=== PATIENT | female | born 1940 | race Caucasian/White ===

== ENCOUNTER → 2017-12-03 | Outpatient (CLI) | payer MEDICARE | END | disposition home or self-care (01) | LOC: CFH 07:16 | PROVIDERS: ATTEND Internal Medicine | DX: Z12.31 Encounter for screening mammogram for malignant neoplasm of breast (principal) | CPT/HCPCS: 77067 ==

== ENCOUNTER 2018-05-09 18:39 | Inpatient (IN) | payer MEDICARE ==
[~2018-05-09] VITALS: Ht 162.6 cm; Wt 82.7 kg
--- NOTE | 2018-05-09 18:53 | NUR ---
PT [place] HAD A WITNESSED "90 SECOND SEIZURE". PER EMS, PT DID NOT FALL OUT OF THE CHAIR AND DID NOT HAVE ANY TRAUMA DURING SEIZURE BUT WAS INCONTINENT OF URINE. WHEN EMS ARRIVED ON SCENE PT WAS POSTICTAL. PT IS NOW A&OX4. PT IS A POOR HISTORIAN, DENIES HX OF SEIZURES. PT STATES HER BACK AND LEFT FOOT ARE SORE. PT DENIES ANY OTHER PAIN. PT PLACED ON CONT. SPO2, CARDIAC, AND BP MONITOR. SEIZURE PRECAUTIONS IN PLACE
--- NOTE | 2018-05-09 19:14 | NUR ---
EDMD AT BED SIDE. EDMD EXPLAINING PLAN OF CARE. PT AOX4. RESPS EVEN AND UNLABORED. NEURO INTACT. ALL MONITORS IN PLACE. CALL LIGHT WITHN REACH. WILL CONTINUE TO MONITOR.
[2018-05-09 19:53] LABS: BASOPHILS # (AUTO) 0.02 x10^3/uL (0-0.1); BASOPHILS % (AUTO) 0 % (0-1); EOSINOPHILS # (AUTO) 0.16 x10^3/uL (0-0.4); EOSINOPHILS % (AUTO) 2 % (1-7); LYMPHOCYTES # (AUTO) 1.85 x10^3/uL (1-3.4); LYMPHOCYTES % (AUTO) 18 % (22-44); MD NO; MEAN CORPUSCULAR HEMOGLOBIN 30.9 pg (27.0-34.8); MEAN CORPUSCULAR HGB CONC 33.9 g/dL (32.4-35.8); MEAN CORPUSCULAR VOLUME 91.2 fL (80-100); MONOCYTES % (AUTO) 4 % (2-9); NEUTROPHILS # (AUTO) 7.98 x10^3/uL (1.8-6.8); NEUTROPHILS % (AUTO) 77 % (42-75); PLATELET COUNT 347 x10^3/uL (130-400); RED BLOOD COUNT 4.68 x10^6/uL (3.82-5.3); RED CELL DISTRIBUTION WIDTH 13.7 % (9.6-15.2)
[2018-05-09 20:03] LABS: ALANINE AMINOTRANSFERASE 26 U/L (12-78); ALBUMIN 3.9 g/dL (3.4-5.0); ANION GAP 10 mmol/L (5-15); CALCIUM 8.3 mg/dL (8.5-10.1); CHLORIDE 104 mmol/L (98-107); CREATININE 1.02 mg/dL (0.55-1.02)
--- NOTE | 2018-05-09 20:03 | NUR ---
PT IN CT NOW
[2018-05-09 20:08] LABS: ALKALINE PHOSPHATASE 62 U/L (45-117); BILIRUBIN,TOTAL 0.2 mg/dL (0.2-1.0); TOTAL PROTEIN 7.3 g/dL (6.4-8.2); TROPONIN I < 0.015 ng/mL (0.000-0.045)
--- NOTE | 2018-05-09 20:14 | NUR ---
PT BACK TO ROOM FROM [place]. PT RESTING IN [facility]. PT AOX4. RESPS EVEN AND UNLABORED. ALL MONITORS IN PLACE. CALL LIGHT WITHIN REACH. PT'S AT BED SIDE.
--- NOTE | 2018-05-09 20:25 | NUR ---
PRECIOUS ORDERED FROM PHARMACY.
[2018-05-09] MEDS ORDERED: LEVETIRACETAM 1,000 MG in SODIUM CHLORIDE 0.9% 100 ML IV ONE (20:30)
[2018-05-09] MEDS ORDERED: STEROID EYE DROPS EACHEYE (20:35)
--- NOTE | 2018-05-09 20:59 | NUR ---
edmd updated pt's results. pt medicated per emar. pt tolerated well. pt's at bed side. call light within reach. will continue to monitor.
[2018-05-09] MEDS ORDERED: DEXAMETHASONE 4 MG/ML, 1ML IVPush ONE (21:00)
--- NOTE | 2018-05-09 21:02 | NUR ---
pt aox4. resps even and unlabored. neuro intact. pupils equal round and reactive. equal enrobing machine corder bilaterally. no drift. pt reports left foot pain and generalized back pain 8/10 present since awakening after sz sea captain, naif moyer notified. left foot warm with normal pulse, movement, and sensation. all monitors in place. call light within reach. keppra infusing. awaiting further orders at this time.
--- NOTE | 2018-05-09 21:24 | NUR ---
neurologist consult in progress with [employer]er[employer].
[2018-05-09] MEDS ORDERED: DOCUSATE 100 MG CAPSULE PO PRN (21:30)
[2018-05-09] MEDS: DEXAMETHASONE 4 MG/ML, 1ML IVPush SCH (21:30)
[2018-05-09] MEDS ORDERED: LORazepam 2 MG/ML, 1ML IVPush PRN (21:30)
[2018-05-09] MEDS ORDERED: DEXAMETHASONE 4 MG/ML, 1ML ONE (21:33)
--- NOTE | 2018-05-09 22:05 | NUR ---
pt resting kerline marroquin. pt aox4. resps even and unlabored. all monitors in place. call light within reach. will continue to monitor.
--- NOTE | 2018-05-09 22:19 | NUR ---
sbar report given to dana nix. all questions answered.
[2018-05-09 23:25] VITALS: BP 175/77
[2018-05-10] VITALS: BP 160/88
[2018-05-10] MEDS: ACETAMINOPHEN 325 MG TABLET PO PRN ×4 (00:08→19:29)
[2018-05-10 02:07] VITALS: BP 137/78
[2018-05-10] MEDS: DEXAMETHASONE 4 MG/ML, 1ML IVPush SCH ×4 (03:33→21:54)
[2018-05-10 08:12] VITALS: BP 149/77
[2018-05-10] MEDS: LEVETIRACETAM 1,000 MG in SODIUM CHLORIDE 0.9% 100 ML IV SCH ×2 (09:05→21:27)
[2018-05-10] MEDS ORDERED: DEXA0.5D OP (10:46)
[2018-05-10] MEDS ORDERED: PRED5DRO20 OP (10:46)
[2018-05-10] MEDS ORDERED: DEXAMETHASONE OPHTH 0.1%, 5ML RIGHTEYE SCH (11:30)
[2018-05-10] MEDS: predniSOLONE OPHTH SUSP 1%, 5ML EACHEYE SCH ×3 (13:08→21:00)
[2018-05-10] MEDS: PANTOPROZOLE 40MG TABLET PO SCH (13:52)
[2018-05-10] MEDS ORDERED: GADOBUTROL 7.5 MMOL/7.5 ML PFS ONE (14:47)
[2018-05-10] MEDS ORDERED: OMNIPAQUE 350 MG/ML, 100ML BOTTLE ONE (15:21)
[2018-05-10 16:55] VITALS: BP 128/74
[2018-05-10 20:42] VITALS: BP 125/75
[2018-05-11 01:52] VITALS: BP 116/69
[2018-05-11] MEDS: DEXAMETHASONE 4 MG/ML, 1ML IVPush SCH ×3 (03:37→15:08)
[2018-05-11 05:40] LABS: ANION GAP 8 mmol/L (5-15); CALCIUM 8.2 mg/dL (8.5-10.1); CHLORIDE 107 mmol/L (98-107); CREATININE 0.85 mg/dL (0.55-1.02)
[2018-05-11 05:41] LABS: BASOPHILS % (AUTO) 0 % (0-1); EOSINOPHILS % (AUTO) 0 % (1-7); LYMPHOCYTES # (AUTO) 1.47 x10^3/uL (1-3.4); LYMPHOCYTES % (AUTO) 9 % (22-44); MD NO; MEAN CORPUSCULAR HEMOGLOBIN 31.1 pg (27.0-34.8); MEAN CORPUSCULAR HGB CONC 33.7 g/dL (32.4-35.8); MEAN CORPUSCULAR VOLUME 92.3 fL (80-100); MEAN PLATELET VOLUME 8.4 fL (7.4-10.4); MONOCYTES # (AUTO) 0.55 x10^3/uL (0.2-0.8); MONOCYTES % (AUTO) 3 % (2-9); NEUTROPHILS # (AUTO) 14.96 x10^3/uL (1.8-6.8); NEUTROPHILS % (AUTO) 88 % (42-75); PLATELET COUNT 392 x10^3/uL (130-400); RED BLOOD COUNT 4.58 x10^6/uL (3.82-5.3); RED CELL DISTRIBUTION WIDTH 14.1 % (9.6-15.2)
[2018-05-11] MEDS: predniSOLONE OPHTH SUSP 1%, 5ML EACHEYE SCH ×3 (05:50→15:20)
[2018-05-11] MEDS: PANTOPROZOLE 40MG TABLET PO SCH (05:50)
[2018-05-11] MEDS: LEVETIRACETAM 1,000 MG in SODIUM CHLORIDE 0.9% 100 ML IV SCH (08:24)
[2018-05-11 09:51] VITALS: BP 137/77
[2018-05-11] MEDS: ACETAMINOPHEN 325 MG TABLET PO PRN (10:33)
[2018-05-11] MEDS ORDERED: LEVE100020 PO (13:32)
[2018-05-11] MEDS ORDERED: OMEP-110 PO (13:32)
[2018-05-11] MEDS ORDERED: METH4TAB2 PO (13:32)
[2018-05-11 14:21] VITALS: BP 145/77
== END 2018-05-11 17:20 | disposition home or self-care (01) | DRG 54 ==
LOC: ED 20:45 → EDIP 21:12 → SUATTDRO 21:17 → 5SO 23:01 → 4NOR 05-10 17:30
PROVIDERS: ADMIT Internal Medicine; ATTEND Internal Medicine
DX: D32.0 Benign neoplasm of cerebral meninges (principal); G93.6 Cerebral edema; J98.11 Atelectasis; E78.00 Pure hypercholesterolemia, unspecified; R32 Unspecified urinary incontinence; Z82.3 Family history of stroke; Z87.891 Personal history of nicotine dependence; Z98.42 Cataract extraction status, left eye; Z98.41 Cataract extraction status, right eye; G40.409 Other generalized epilepsy and epileptic syndromes, not intractable, without status epilepticus
CPT/HCPCS: 36415; 70450; 70496; 70553; 71045; 72158; 80048; 80053; 83735; 84484; 85025; 95819; A9585; G0378; J1100; J1953; Q9967

== ENCOUNTER → 2018-06-24 | Outpatient (CLI) | payer MEDICARE ==
[~2018-06-24] MED LIST: DEXA0.5D OP; LEVE100020 PO; METH4TAB2 PO; OMEP-110 PO; PRED5DRO20 OP; STEROID EYE DROPS EACHEYE
== END | disposition home or self-care (01) ==
LOC: CVU 15:16
PROVIDERS: ATTEND Nurse Practitioner Primary Care
DX: I11.9 Hypertensive heart disease without heart failure (principal); I35.0 Nonrheumatic aortic (valve) stenosis; E78.2 Mixed hyperlipidemia; I37.1 Nonrheumatic pulmonary valve insufficiency; Z79.899 Other long term (current) drug therapy; Z87.891 Personal history of nicotine dependence
CPT/HCPCS: 93306

== ENCOUNTER 2019-05-21 09:21 | Outpatient (CLI) | payer MEDICARE | END 2019-05-21 23:59 | disposition home or self-care (01) | LOC: CFH 09:21 | PROVIDERS: ATTEND Nurse Practitioner Primary Care | DX: E78.5 Hyperlipidemia, unspecified (principal); Z79.899 Other long term (current) drug therapy; E55.9 Vitamin D deficiency, unspecified; M25.511 Pain in right shoulder; Z87.891 Personal history of nicotine dependence | CPT/HCPCS: 77080 ==

== ENCOUNTER 2020-01-27 11:17 | Outpatient (CLI) | payer MEDICARE | END 2020-01-27 23:59 | disposition home or self-care (01) | LOC: CFH 11:17 | PROVIDERS: ATTEND Nurse Practitioner Primary Care | DX: Z02.9 Encounter for administrative examinations, unspecified (principal) ==

== ENCOUNTER → 2020-02-02 | Outpatient (CLI) | payer MEDICARE | END | disposition home or self-care (01) | LOC: CFH 11:05 | PROVIDERS: ATTEND Nurse Practitioner Primary Care | DX: Z12.31 Encounter for screening mammogram for malignant neoplasm of breast (principal) | CPT/HCPCS: 77063; 77067 ==